=== PATIENT | female | born 1995 | race Hispanic/Latino ===

== ENCOUNTER 2022-12-19 20:40 | Emergency (ER) | payer SELFPAY ==
[2022-12-19] VITALS (12 sets, daily range): BP systolic 85–113; BP diastolic 46–69; PULSE 62–76; RESP 16; TEMP 36.2; O2SAT 100
--- NOTE | ~2022-12-19 | XR_ITS ---
EXAMINATION: XR chest 1V Exam Date/Time: 12/19/2022 22:10 GIVER HISTORY: AMS, PT FOUND UNRESPONSIVE Comparison: None available. RESULT: Lines, tubes, and devices: None. Lungs and pleura: Low volumes with crowding. Cardiomediastinal silhouette: Stable. Other: No acute osseous or upper abdominal finding. IMPRESSION: No acute cardiopulmonary process. Reviewed, dictated and finalized at location K. R
--- NOTE | ~2022-12-19 | CT_ITS ---
EXAMINATION: CT cervical spine wo con DATE: 12/19/2022 22:15 INDICATION: neck pain TECHNIQUE: Computed tomography (CT) of the cervical spine was performed without intravenous contrast. Automated exposure control and iterative reconstruction technique were employed. The dose-length pro duct was 467.02 mGy-cm. COMPARISON: None. FINDINGS: Vertebral Body Alignment: Intact. Loss of the normal lordosis which can occur with positioning or spa sm. Craniocervical and atlantoaxial alignment: No significant degenerative change. Alignment intact. Osseous structures/fracture: No evidence of a lytic or blastic process in the visualized spine. No e vidence of acute fracture. . Cervical soft tissues: The paraspinal soft tissues planes are maintained. Multiple enlarged anterior and posterior cervical chain nodes. Degenerative changes: No significant degenerative changes. IMPRESSION: No acute fracture or traumatic malalignment in the cervical spine. Anterior and posterior cervical ch ain lymphadenopathy. Reviewed, dictated and finalized at location K. DRIER IMPRESSION: No acute fracture or traumatic malalignment in the cervical spine. Anterior and posterior cervical chain lymphadenopathy.
--- NOTE | ~2022-12-19 | CT_ITS ---
EXAMINATION: CT brain wo con DATE: 12/19/2022 22:12 INDICATION: AMS . TECHNIQUE: Computed tomography (CT) of the head was performed without intravenous contrast. The mA wa s adjusted according to patient size. Iterative reconstruction technique was employed. The dose-lengt h product was 605.33 mGy-cm. COMPARISON: None. FINDINGS: No acute intracranial hemorrhage or extra-axial fluid collection. No hydrocephalus, mass, or herniation. No acute ischemic infarct. Unremarkable dural venous sinus attenuation. No acute osseous abnormality. The aerated spaces are clear. IMPRESSION: No acute intracranial process. Reviewed, dictated and finalized at location K. CARRIER
--- NOTE | 2022-12-19 20:43 | ECG_ITS ---
Measurements Intervals [place]bilt Rate: 72 P: 34 MD: 147 QRS: 12 QRSD: 102 T: 10 QT: 386 QTc: 424 Interpretive Statements SINUS RHYTHM INCOMPLETE RIGHT BUNDLE BRANCH BLOCK BASELINE ARTIFACT- I, II, III, AVR, AVL, AVF, V1-V6 BORDERLINE ECG NO PREVIOUS ECG AVAILABLE FOR COMPARISON Electronically Signed On 12-20-2022 6:17:34 SOFTWARE ARCHITECT by Jaskaran Llanos D.O.
[2022-12-19 21:04] LABS: Basophils Absolute Auto 0.1 K/mm3 (0.0-0.1); Eosinophils Absolute Auto 0.7 K/mm3 (0-0.3); Hematocrit 25.8 % (37.0-47.0); Hemoglobin 8.1 g/dL (12.0-15.0); Immature Granulocyte Absolute 0.02 K/mm3 (0.00-0.031); Immature Granulocyte Percent A 0.2 % (0-0.5); Lymphocytes Absolute Auto 2.45 K/mm3 (0.9-3.2); Lymphocytes Percent Auto 27.2 % (18.3-44.2); Mean Corpuscular HGB Conc 31.4 g/dl (32-36); Mean Corpuscular Hemoglobin 25.2 pg (26-34); Mean Corpuscular Volume 80.4 fl (80-100); Mean Platelet Volume 10.7 fl (7.4-10.4); Monocytes Absolute Auto 0.4 K/mm3 (0.1-0.6); Monocytes Percent Auto 4.1 % (2.6-8.5); Neutrophils Absolute Auto 5.4 K/mm3 (1.3-6.7); Neutrophils Percent Auto 59.5 % (45.5-73.1); Platelet Count Result 289 k/mm3 (150-375); Red Blood Count 3.21 M/mm3 (4.2-5.4); Red Cell Distribution Width 15.1 % (11.5-14.5)
[2022-12-19 21:20] LABS: Acetaminophen < 10 ug/mL (10-30); Ammonia < 9 umol/L (9-30); Ethanol < 10 mg/dL (<10); Salicylate < 1.0 mg/dL (2-20)
[2022-12-19] MEDS: SODIUM CHLORIDE 0.9% IV 1,000 ML 999 ML IV CONT (21:22)
[2022-12-19 21:23] LABS: INR 1.1; Prothrombin Time 13.4 Seconds (11.1-14.7)
[2022-12-19 21:24] LABS: Alanine Aminotransferase 22 U/L (6-35); Albumin Level 4.4 g/dL (3.5-5.1); Alkaline Phosphatase 124 U/L (38-126); Anion Gap 6 mmol/L (8-16); Aspartate Amino Transferase 22 U/L (14-36); Bilirubin,Total 0.3 mg/dL (0.2-1.3); Blood Urea Nitrogen 10 mg/dL (7-17); Calcium 8.7 mg/dL (8.4-10.2); Carbon Dioxide 26 mmol/L (22-30); Chloride 104 mmol/L (98-107); Estimated Glomerular Filt Rate > 60; Glucose 134 mg/dL (65-110); Partial Thromboplastin Time 30.8 SECONDS (22.3-36.8); Sodium 136 mmol/L (137-145)
[2022-12-19 21:28] LABS: Lactic Acid Reflex 1.1 mmol/L (0.7-2.0)
[2022-12-19 22:14] LABS: Appearance Urine Clear (Clear); Bilirubin Urine Negative (Negative); Blood Urine 2+ (Negative); Color Urine Yellow (Yellow); Glucose Urine UA Negative (Negative); Ketones Urine Negative (Negative); Leukocyte Esterase Ur Trace LEU/UL (Negative); Nitrate Urine Negative (Negative); Protein Urine Negative (Negative); Urobilinogen Urine 0.2 mg/dL (<2.0); pH Urine 5.5 (5.0-9.0)
[2022-12-19 22:17] LABS: RBC Urine 51-75 /hpf (0-2); Squamous Epithelial Cell Urine Rare /hpf (Few); WBC Urine 0-3 /hpf
[2022-12-19 22:18] LABS: Amphetamine Screen Urine Negative (Negative); Barbiturate Screen Urine Negative (Negative); Benzodiazepines Screen Urine Negative (Negative); Cannabinoid Screen Urine Negative (Negative); Cocaine Screen Urine Negative (Negative); Methadone Screen Urine Negative (Negative); Opiate Screen Urine Negative (Negative); Phencyclidine Screen Urine Negative (Negative)
[2022-12-19 22:22] LABS: Add Urine Microscopic? YES
--- NOTE | 2022-12-19 22:28 | PC.NURSE ---
Dr. Moore brought it to my attention that this patient has a 4 year old child and the patient is not aware of who is caring for the child or where he is at this time. Pt boyfriend is in the lobby and pt does not wish for the boyfriend to come back to the room at this time. I spoke with the boyfriend in the lobby who reports that his friends are at home with the child. I called Nancy requesting a wellness check on the home who informed me [facility] I spoke with someone at the [facility] who identified himself as [id number] and said they will send a deputy to the address provided to us and call us back.
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
--- NOTE | 2022-12-19 23:10 | PC.NURSE ---
I received a call back from a [place] Yann who tells me that the address that we were provided is the address to a grocery store. He tells me that there was a call out to an unresponsive female at [address] [place] [address] in [place] which is [facility]. I will call them next.
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
[2022-12-20] VITALS: O2SAT 100
[2022-12-20 00:01] VITALS: BP 100/49; O2SAT 100
[2022-12-20 00:16] VITALS: BP 137/90
[2022-12-20 00:31] VITALS: BP 128/94
== END 2022-12-20 01:01 | disposition home or self-care (01) ==
PROVIDERS: Emergency Provider Emergency Medicine
DX: D64.9 Anemia, unspecified (principal); F43.0 Acute stress reaction
CPT/HCPCS: 36415; 70450; 71045; 72125; 80053; 80307; 81001; 81025; 82140; 83605; 84443; 85025; 85610; 85730; 93005; 96360; 99284; J7030